=== PATIENT | male | born 1995 | race Two or more races ===

== ENCOUNTER 2018-09-24 20:30 | Emergency (ER) | payer MEDICARE, OTHER, MEDICAID ==
[~2018-09-24] VITALS: Ht 172.7 cm; Wt 102.5 kg
--- NOTE | 2018-09-24 20:30 | NUR ---
PT GERARD FROM A [facility], REPORTS PT WANTING TO GO HOME, RESTLESS. PT CONTINUES TO AMBULATE WITHOUT ASSIST, PT ON MONITOR, VSS, NAD NOTED, PENDING MD PORRAS
--- NOTE | 2018-09-24 21:05 | NUR ---
CALLED HOUSE SUP FOR SITTER, PT KEEPS WALKING OUT OF ROOM. PT WILL BE SEEN BY SW IN THE AM.
--- NOTE | 2018-09-24 21:50 | NUR ---
SITTER AT BEDSIDE, PT SLEEPING
[2018-09-24 21:58] LABS: BASOPHILS # (AUTO) 0.1 /CMM (0.0-0.2); EOSINOPHILS % (AUTO) 6.7 % (0.0-6.0); HEMATOCRIT 44 % (39-51); HEMOGLOBIN 14.6 g/dL (13.5-17.5); LYMPHOCYTES # (AUTO) 2.9 /CMM (0.8-4.8); LYMPHOCYTES % (AUTO) 39.8 % (20.0-44.0); MEAN CORPUSCULAR HGB CONC 33 g/dl (31.0-36.0); MEAN CORPUSCULAR VOLUME 89 fL (80-96); MONOCYTES # (AUTO) 0.6 /CMM (0.1-1.30); MONOCYTES % (AUTO) 8.7 % (2.0-12.0); NEUTROPHILS # (AUTO) 3.2 /CMM (1.8-8.9); NEUTROPHILS % (AUTO) 43.8 % (43.0-81.0); PLATELET COUNT (AUTO) 217 /CMM (150-450); WHITE BLOOD COUNT (AUTO) 7.2 K/uL (4.3-11.0)
[2018-09-24 22:11] LABS: ACETAMINOPHEN 0 ug/ml (10-30); ALANINE AMINOTRANSFERASE 86 U/L (12-78); ALCOHOL, BLOOD < 3 mg/dL (0-0); ALKALINE PHOSPHATASE 102 U/L (46-116); ASPARTATE AMINOTRANSFERASE 25 U/L (15-37); BILIRUBIN,DIRECT 0.1 mg/dL (0.0-0.2); BILIRUBIN,TOTAL 0.8 mg/dL (0.2-1.0); CALCIUM, SERUM 9.3 mg/dL (8.5-10.1); CARBON DIOXIDE 26 mmol/L (21-32); CHLORIDE 106 mmol/L (98-107); CREATININE 0.9 mg/dL (0.6-1.3); GLUCOSE 90 mg/dL (74-106); SALICYLATE 0.2 mg/dL (2.8-20.0); SODIUM SERUM 143 mmol/L (136-145); TOTAL PROTEIN, SERUM 7.6 g/dL (6.4-8.2); UREA NITROGEN, BLOOD 14 mg/dL (7-18)
--- NOTE | 2018-09-25 00:03 | NUR ---
VITAL SIGNS UPDATED. Patient is resting comfortably in bed with eyes closed. Easily aroused. VSS
--- NOTE | 2018-09-25 00:04 | NUR ---
REPORT GIVEN TO ERI COBIAN FOR MONSTER
--- NOTE | 2018-09-25 07:16 | NUR ---
URINE COLLECTED AND SENT TO LAB
[2018-09-25 08:00] LABS: APPEARANCE,URINE Clear (CLEAR); BILIRUBIN,URINE Negative (NEGATIVE); BLOOD, URINE Negative Ery/uL (NEGATIVE); COLOR,URINE Yellow (YELLOW); KETONES,URINE Negative (NEGATIVE); LEUKOCYTE ESTERASE ,URINE Negative (NEGATIVE); NITRITE, URINE Negative (NEGATIVE); PROTEIN,URINE Negative (NEGATIVE); UGLUCOSE Negative (NEGATIVE); UROBILINOGEN,URINE 0.2 EU/dL (0.2)
[2018-09-25 10:38] VITALS: BP 125/66
--- NOTE | 2018-09-25 10:39 | NUR ---
Patient discharged to home in stable condition. Written and verbal after care instructions given. Patient caregiver verbalizes understanding of instruction.
== END 2018-09-25 10:39 | disposition home or self-care (01) ==
LOC: ER 20:32
DX: G31.84 Mild cognitive impairment of uncertain or unknown etiology (principal); R45.6 Violent behavior; F31.9 Bipolar disorder, unspecified; F20.9 Schizophrenia, unspecified; F90.9 Attention-deficit hyperactivity disorder, unspecified type; F81.9 Developmental disorder of scholastic skills, unspecified; I10 Essential (primary) hypertension; Z88.8 Allergy status to other drugs, medicaments and biological substances
CPT/HCPCS: 36415; 80048; 80076; 80305; 80307; 81001; 85025; 99284; G0480; 81000-TC

== ENCOUNTER 2018-10-06 15:41 | Inpatient (IN) | payer MEDICARE, OTHER, MEDICAID ==
[~2018-10-06] VITALS: Ht 175.3 cm; Wt 69.9 kg
[2018-10-06] MEDS ORDERED: LORA0.5T PO (15:53)
[2018-10-06] MEDS ORDERED: DIVA500T4 PO (15:53)
[2018-10-06] MEDS ORDERED: QUET50TA PO (15:53)
[2018-10-06] MEDS ORDERED: MAG30ORA PO (15:53)
[2018-10-06] MEDS ORDERED: QUET100T PO (15:53)
[2018-10-06] MEDS ORDERED: OLANZAPINE 10 MG VIAL IM ONE ×2 (15:59→16:00)
--- NOTE | 2018-10-06 16:00 | NUR ---
PT [facility], PT ON BED 12, PT ON MONITOR, VSS, NAD NOTED, PENDING MD PORRAS
[2018-10-06 16:18] LABS: BASOPHILS % (AUTO) 0.5 % (0.0-2.0); EOSINOPHILS % (AUTO) 9.5 % (0.0-6.0); HEMATOCRIT 45 % (39-51); HEMOGLOBIN 15.3 g/dL (13.5-17.5); LYMPHOCYTES # (AUTO) 2.7 /CMM (0.8-4.8); LYMPHOCYTES % (AUTO) 34.8 % (20.0-44.0); MEAN CORPUSCULAR HGB CONC 34 g/dl (31.0-36.0); MEAN CORPUSCULAR VOLUME 90 fL (80-96); MONOCYTES # (AUTO) 0.6 /CMM (0.1-1.30); MONOCYTES % (AUTO) 8.3 % (2.0-12.0); NEUTROPHILS # (AUTO) 3.7 /CMM (1.8-8.9); NEUTROPHILS % (AUTO) 46.9 % (43.0-81.0); PLATELET COUNT (AUTO) 205 /CMM (150-450); RED BLOOD CELL COUNT(AUTO) 5.03 MIL/uL (4.5-6.0); WHITE BLOOD COUNT (AUTO) 7.8 K/uL (4.3-11.0)
[2018-10-06 16:23] LABS: CALCIUM, SERUM 9.6 mg/dL (8.5-10.1); CARBON DIOXIDE 27 mmol/L (21-32); CHLORIDE 103 mmol/L (98-107); CREATININE 0.8 mg/dL (0.6-1.3); GLUCOSE 114 mg/dL (74-106); POTASSIUM 4.2 mmol/L (3.5-5.1); SODIUM SERUM 141 mmol/L (136-145); UREA NITROGEN, BLOOD 9 mg/dL (7-18)
[2018-10-06 16:28] LABS: ALANINE AMINOTRANSFERASE 68 U/L (12-78); ALKALINE PHOSPHATASE 104 U/L (46-116); ASPARTATE AMINOTRANSFERASE 24 U/L (15-37); BILIRUBIN,DIRECT 0.1 mg/dL (0.0-0.2); BILIRUBIN,TOTAL 0.8 mg/dL (0.2-1.0); TOTAL PROTEIN, SERUM 7.9 g/dL (6.4-8.2)
[2018-10-06 16:29] LABS: ACETAMINOPHEN 0 ug/ml (10-30); ALCOHOL, BLOOD < 3 mg/dL (0-0); SALICYLATE 0.8 mg/dL (2.8-20.0)
[2018-10-06 17:00] LABS: APPEARANCE,URINE Clear (CLEAR); BILIRUBIN,URINE Negative (NEGATIVE); BLOOD, URINE Negative Ery/uL (NEGATIVE); COLOR,URINE Yellow (YELLOW); KETONES,URINE Negative (NEGATIVE); LEUKOCYTE ESTERASE ,URINE Negative (NEGATIVE); NITRITE, URINE Negative (NEGATIVE); PROTEIN,URINE Negative (NEGATIVE); UGLUCOSE Negative (NEGATIVE); UROBILINOGEN,URINE 0.2 EU/dL (0.2)
--- NOTE | 2018-10-06 17:14 | NUR ---
CALLED DIRECTOR OF MARKETING (BIENVENIDO)
--- NOTE | 2018-10-06 22:10 | NUR ---
PER BIENVENIDO HUMAN RESOURCES VICE PRESIDENT, PT WAS PUT ON A 5150 HOLD, ALL PPW SENT TO [facility] FOR POSSIBLE PSYCH FACILITY PLACEMENT. AWAITING CALL BACK FOR POSSIBLE PLACEMENT.
--- NOTE | 2018-10-06 22:56 | NUR ---
SITTER AT BEDSIDE. PT CALM AND COOPERATIVE AT THIS TIEM, VITAL SIGNS UPDATED.
--- NOTE | 2018-10-06 23:55 | NUR ---
SPOKE TO RENETTA AT [facility]; STILL WAITING FOR CALL BACK FROM MD REGARDING ADMISSION. WILL UPDATE US WHEN HE GETS A CALL BACK.
--- NOTE | 2018-10-07 01:00 | NUR ---
pt asleep, sitter at bed side, vs monitored.
--- NOTE | 2018-10-07 03:00 | NUR ---
pt asleep clean and dry, vs stable, will cont to monitor.
--- NOTE | 2018-10-07 06:48 | NUR ---
pt begining to wake up, still not able to provide detailed information, will cont' to monitor.
--- NOTE | 2018-10-07 07:09 | NUR ---
PT HAS SITTER AT BEDSIDE ON MONITOR PT DELAYED [facility] F/U STILL WAITNG FOR ACCEPTING MD TO TRANSFER HOSTPITAL HAS A BED
--- NOTE | 2018-10-07 07:45 | NUR ---
called [facility] intake [phone] spoke with Kolton: have bed waiting to get a doctor to accept. said give them an hour.
--- NOTE | 2018-10-07 09:23 | NUR ---
called [facility] [phone] spoke with Kolton again: he said that they do not have an accepting md. since pt has had a trumatic brain injury? therefore they are unable to accept at this time.
--- NOTE | 2018-10-07 09:35 | NUR ---
CALLED BIENVENIDO FROM CRISIS TEAM AND NOTIFY HER THAT [facility] IS UNABLE TO ACCEPT PT. CALLED CASE MANAGEMENT [phone] AND SPOKE WITH KEVAN WHO STATES PT IF ADMITTED TO [facility] CAN LOCATE [facility] BIENVENIDO AWARE AND IS TEXTING MD MELGAR
--- NOTE | 2018-10-07 10:01 | NUR ---
PT REFUSES TO HAVE VITAL SIGNS TAKEN KEEPS STATING NO, NO, NO. PT SKIN WARM PINK AND MOIST ABLE TO MOVE ALL EXTREMITIES WILL CONTINUE TO MONITOR.
--- NOTE | 2018-10-07 10:56 | NUR ---
PT ATE CUSTARD AND 240 ML JUICE WITH ASSIST GIVEN ARM BLANKET STILL REFUSES TO HAVE VITAL SIGNS TAKEN.
--- NOTE | 2018-10-07 12:59 | NUR ---
PT GIVEN LUNCH TRAY BUT STILL REMAINS UNWILLING TO HAVE VITAL SIGNS TAKEN. SPOKE WITH LEWIS TAM AT COURT PROVIDED CONSERVATOR OUT OF [facility]. PT WAS NOTED TO BE AMBULATORY AND SPEEECH IMPARIED ACCORDING TO CONSERVATORY. PT HAS BEEN IN SEVERAL FACILITIES AND DISCHARGED LAST WAS [facility]. PT PENDING ADMISSION.
[2018-10-07] MEDS ORDERED: OLANZAPINE 10 MG VIAL IM ONE ×2 (14:00→14:55)
[2018-10-07] MEDS ORDERED: LORAZEPAM INJ 2 MG/ML VIAL IM ONE (14:00)
--- NOTE | 2018-10-07 14:25 | NUR ---
PT HAD BOWEL MOVEMENT WITH URINE ALL OVER BED PT BATHED LINEN CHANGED PLACED IN NEW GOWN AND COVERED WITH WARM BLANKET
--- NOTE | 2018-10-07 14:38 | NUR ---
325-2 MEDR FAILURE TO THRIVE SHAYNA DNP
[2018-10-07] MEDS ORDERED: LORAZEPAM INJ 2 MG/ML VIAL ONE (14:56)
--- NOTE | 2018-10-07 16:00 | NUR ---
PT CALM AFTER MEDICATION VITAL SIGNS TAKEN
--- NOTE | 2018-10-07 16:35 | NUR ---
Pt remains in ER for almost 24H discussed Plan of care with ER Team: Spoke to PET brigadier Hina. She states Patient "Does NOT meet criteria to be on psch Hold discussed case with MD Saavedra." ED Provider Dr. Kraus "No medical Reason to Admit" Called Facility where pt resides ([facility] [phone]) Was told by Esther "I will have our technical operations manager you back" No case management specialist on site left message with Mary Jo to get in touch with transformation lead CM Spoke to [facility] Remote Sensing Program Manager regarding patient situation. ER Director Miguel updated. RN Ross Primary updated
--- NOTE | 2018-10-07 17:28 | NUR ---
PT GIVEN DINNER TRAY ASISSTED WITH FEEDING ATE 90%
--- NOTE | 2018-10-07 18:26 | NUR ---
Dental Office Receptionist from [facility] [phone] called Patient on conservatorship under [facility] [phone]
--- NOTE | 2018-10-07 19:12 | NUR ---
LEWIS PALACIO (PT'S CONSERVATOR) CALLED FOR ANY UPDATES, PT STILL DOES NOT HAVE ANY PLACEMENT AT THE MOMENT.
--- NOTE | 2018-10-08 01:35 | NUR ---
PT IS AWAKE ON BED NOT IN RESPIRATORY DISTRESS, V/S STABLE WILL CONTINUE TO MONITOR.
--- NOTE | 2018-10-08 03:16 | NUR ---
PT ASLEEP ON BED, EASILY AROUSABLE, WILL CONTINUE TO MONITOR.
--- NOTE | 2018-10-08 08:10 | NUR ---
CALLED DIETARY FOR BREAKFAST TRAY
--- NOTE | 2018-10-08 16:45 | NUR ---
CALLED FOR FOOD TRAY.
--- NOTE | 2018-10-08 19:03 | NUR ---
PT IN BED, RESTING, VSS, NAD NOTED, KEPT COMFORTABLE. VITAL SIGNS UPDATED
[2018-10-08] MEDS ORDERED: OLANZAPINE 10 MG VIAL IM ONE ×2 (21:51→22:00)
--- NOTE | 2018-10-08 21:54 | NUR ---
PT ANXIOUS AND COMBATIVE. ZYPREXA IM GIVEN [id number],.
--- NOTE | 2018-10-08 23:08 | NUR ---
NURSING ANNEL INFORMED ABOUT PATIENT SITUATION. ER MD AWARE. ANNEL SPOKE TO ER MD. AWAITING FURTHER INFORMATION.
--- NOTE | 2018-10-09 00:04 | NUR ---
PT IN BED, RESTING COMFORTABLY. PROVIDED WITH FOOD AND SNACKS. VSS. WILL CONTINUE TO MONITOR.
--- NOTE | 2018-10-09 02:02 | NUR ---
NO UPDATES REGARDING PT PLACEMENT. WILL CONTINUE TO MONITOR. Patient is resting comfortably in bed with eyes closed. Easily aroused. VSS
--- NOTE | 2018-10-09 06:09 | NUR ---
PT VERY COMBATIVE AND ANXIOUS. REFUSING CARE. REFUSING VITAL SIGN AND CROWN WHEEL ASSEMBLER. HAD AN EPISODE OF BM. THREE NURSES ASSISTED IN CLEANING THE BATIENT AND PLACING THE PT ON A DIAPER HOWEVER PT REMOVED THE DIAPER AND THREW IT AT THE NURSE. WILL CONT TO MONITOR THE PT CLOSELY FOR SAFETY.
[2018-10-09] MEDS ORDERED: QUETIAPINE FUMARATE 25 MG TABLET PO SCH (09:00)
[2018-10-09] MEDS ORDERED: DIVALPROEX SODIUM 500 MG TABLET.DR PO ONE (09:00)
--- NOTE | 2018-10-09 09:48 | NUR ---
CALLED JEANETTE ITS DOUGLAS
--- NOTE | 2018-10-09 10:25 | NUR ---
[facility] CASE MANAGEMENT AT BEDSIDE TO SPEAK WITH CONGREGATE FACILITY STAFF
[2018-10-09] MEDS ORDERED: Z GUARD REMEDY 2 OZ OINT TP PRN (10:30)
[2018-10-09] MEDS ORDERED: MAGNESIUM HYDROXIDE 30 ML UDC PO PRN (10:30)
[2018-10-09] MEDS ORDERED: ACETAMINOPHEN 325 MG TABLET PO PRN (10:30)
[2018-10-09] MEDS ORDERED: MAG HYDROX/AL HYDROX/SIMETH 30 ML UDC PO PRN (10:30)
[2018-10-09] MEDS ORDERED: ONDANSETRON HCL/PF 4 MG/2 ML VIAL IVP PRN (10:30)
--- NOTE | 2018-10-09 10:42 | NUR ---
report given to jessica crain for suzette; pt will be transported to 3rd floor via [facility] with emt
--- NOTE | 2018-10-09 10:45 | NUR ---
MS RN NOTES PATIENT ARRIVED AT UNIT VIA GURNEY. REPORT RECEIVED FROM JHONNY COBIAN. PATIENT AWAKE, ALERT TO SELF. VERBALLY RESPONSIVE AND RESPONDS TO VERBAL AND TACTILE STIMULI. NO ACUTE DISTRESS. PATIENT DENIES ANY PAIN OR DISCOMFORT. PATIENT CONFUSED, ONLY ORIENTED TO SELF. NOTED WITH DISORGANIZED THOUGHTS. NO AGITATION OR AGGRESSIVE BEHAVIOR NOTED AT THIS TIME. PATIENT ADMITTED UNDER MEDICAL SUPERVISION OF DOUGLAS HANSON FISHERIES INSPECTOR, MADE AWARE OF PATIENT ARRIVAL. PATIENT REFUSES TO HAVE IV INSERTION, DOUGLAS HANSON MADE AWARE AND OK.
--- NOTE | 2018-10-09 10:50 | NUR ---
MS RN NOTES PATIENT INTRODUCED AND ORIENTED TO UNIT, STAFF, ROOM, MEAL TIMES, PLAN OF CARE. NO CHANGES IN LOC NOTED AT THIS TIME. WILL CONTINUE TO MONITOR. BED LOCKED AND IN LOW POSITION. BILATERAL UPPER SIDE RAILS UP AND LOCKED. SITTER AT BEDSIDE. CALL LIGHT WITHIN EASY REACH.
[2018-10-09] MEDS: QUETIAPINE FUMARATE 25 MG TABLET PO SCH ×2 (11:00→17:00)
[2018-10-09] MEDS: DIVALPROEX SODIUM 250 MG TABLET.DR PO SCH ×2 (11:00→21:21)
[2018-10-09] MEDS ORDERED: LORAZEPAM 0.5 MG TABLET PO PRN (11:00)
[2018-10-09] MEDS ORDERED: LORAZEPAM 1 MG TABLET PO ONE (12:00)
--- NOTE | 2018-10-09 12:06 | NUR ---
pt to altered to perform cxr
--- NOTE | 2018-10-09 15:05 | NUR ---
MS RN NOTES PATIENT NOTED WITH INCREASED AGITATION. YELLING AND SCREAMING, TURNING AROUND BED AND SWING ARM AND KICKING NURSING STAFF. ATTEMPTED TO CALM PATIENT DOWN BUT TO NO AVAIL, PATIENT CONTINUES TO SWING ARM AND KICK AT NURSING STAFF. DOES NOT WANT TO FOLLOW NURSING CARE, REFUSES REPOSITIONING. PLACED CALL TO DOUGLAS HANSON AND MADE AWARE OF PATIENT CONDITION, GAVE OK TO PLACE BILATERAL SOFT WRIST RESTRAINTS. ORDER NOTED AND CARRIED OUT. PATIENT MADE AWARE, PLACED ON BILATERAL SOFT WRIST RESTRAINTS. MAINTAINED SAFETY PRECAUTIONS. WILL CONTINUE TO MONITOR
[2018-10-09 16:00] VITALS: BP 121/80
--- NOTE | 2018-10-09 18:37 | NUR ---
MS RN NOTES PATIENT RESTING INSIDE ROOM. AWAKE, ALERT AND ORIENTED TO SELF. VERBALLY RESPONSIVE WITH GARBLED SPEECH AND RESPONDS TO VERBAL AND TACTILE STIMULI. NO ACUTE DISTRESS AT THIS TIME. NO C/O PAIN OR DISCOMFORT. PATIENT WITH EPISODES OF GETTING EXTREMELY AGIGATED, ATTEMPTING TO KICK AND PUNCH STAFF. PATIENT ALSO WITH EPISODES OF BEING COOPERATIVE WITH NURSING CARE, TURNING AND REPOSITIONING WITH CHANGING. SAFETY PRECAUTIONS IN PLACE. WILL ENDORSE TO INCOMING SHIFT FOR MONSTER. BED LOCKED AND IN LOW POSITION. SIDE RAILS UP AND LOCKED. CALL LIGHT WITHIN EASY REACH
--- NOTE | 2018-10-09 19:10 | NUR ---
MS/RN NOTES RECEIVED PT. LYING IN BED, PT. IS AWAKE, ALERT AND ORIENTED X 1-2 WITH GARBLED SPEECH. BREATHING EVEN AND UNLABORED ON ROOM AIR. NO SOB, RESPIRATORY DISTRESS OR COMPLAINTS OF PAIN NOTED AT THIS TIME. PT. REMAINS WITH NO IV ACCESS, PER DAYSHIFT NURSE AWARE. PT. WITH 1:1 SITTER PRESENT AT BEDSIDE. BED LOCKED AND IN LOWEST POSITION, SIDE RAILS UP X3, BED ALARM ON, CALL LIGHT WITHIN REACH, WILL CONTINUE TO MONITOR.
[2018-10-09 20:00] VITALS: BP 121/74
[2018-10-09] MEDS: QUETIAPINE FUMARATE 100 MG TABLET PO SCH (21:22)
[2018-10-09] MEDS ORDERED: QUETIAPINE FUMARATE 100 MG TABLET PO SCH (22:00)
--- NOTE | 2018-10-10 06:09 | NUR ---
MS/RN NOTES PT. IS LYING IN BED RESTING. BREATHING EVEN AND UNLABORED ON ROOM AIR. NO SOB, RESPIRATORY DISTRESS OR COMPLAINTS OF PAIN NOTED AT THIS TIME AND THROUGHOUT SHIFT. PT. REMAINS WITH NO IV ACCESS, MD AWARE. PT. WITH 1:1 SITTER PRESENT AT BEDSIDE. ALL PT. NEEDS MET. BED LOCKED AND IN LOWEST POSITION, SIDE RAILS UP X3, BED ALARM ON, CALL LIGHT WITHIN REACH, WILL ENDORSE TO DAYSHIFT NURSE FOR CONTINUITY OF CARE.
--- NOTE | 2018-10-10 07:00 | NUR ---
RECEIVED PATIENT WITH SITTER AT BEDSIDE AND NO RESTRAINTS PER NOC NURSE.PATIENT QUIET IN BED. WILL OBSERVE.
[2018-10-10] MEDS: PANTOPRAZOLE 40 MG TABLET.DR PO SCH (07:30)
[2018-10-10 08:00] VITALS: BP 113/77
[2018-10-10 09:02] LABS: BASOPHILS # (AUTO) 0.1 /CMM (0.0-0.2); BASOPHILS % (AUTO) 0.5 % (0.0-2.0); EOSINOPHILS % (AUTO) 4.3 % (0.0-6.0); HEMATOCRIT 45 % (39-51); HEMOGLOBIN 15.3 g/dL (13.5-17.5); LYMPHOCYTES # (AUTO) 2.2 /CMM (0.8-4.8); LYMPHOCYTES % (AUTO) 21.3 % (20.0-44.0); MEAN CORPUSCULAR HGB CONC 34 g/dl (31.0-36.0); MEAN CORPUSCULAR VOLUME 89 fL (80-96); MONOCYTES # (AUTO) 1.4 /CMM (0.1-1.30); MONOCYTES % (AUTO) 13.4 % (2.0-12.0); NEUTROPHILS # (AUTO) 6.2 /CMM (1.8-8.9); NEUTROPHILS % (AUTO) 60.5 % (43.0-81.0); PLATELET COUNT (AUTO) 184 /CMM (150-450); RED BLOOD CELL COUNT(AUTO) 5.04 MIL/uL (4.5-6.0); WHITE BLOOD COUNT (AUTO) 10.2 K/uL (4.3-11.0)
[2018-10-10] MEDS: DIVALPROEX SODIUM 250 MG TABLET.DR PO SCH ×2 (09:10→22:43)
[2018-10-10] MEDS: QUETIAPINE FUMARATE 25 MG TABLET PO SCH ×2 (09:10→17:34)
[2018-10-10 09:14] LABS: CALCIUM, SERUM 8.9 mg/dL (8.5-10.1); MAGNESIUM 1.6 mg/dL (1.8-2.4); PHOSPHORUS 4.6 mg/dL (2.5-4.9); POTASSIUM 3.9 mmol/L (3.5-5.1)
[2018-10-10 09:41] LABS: THYROID STIMULATING HORMONE 1.491 uIU/mL (0.358-3.74)
--- NOTE | 2018-10-10 11:59 | NUR ---
DWAYNE received a call from pt's conservator Ramsey Cochran from [facility] inquiring about pt's discharge plan. DWAYNE informed him that he will have to speak to top case assembler Elly Davies regarding pt's discharge plan and placement. Ramsey also inquired about pt's telephone and charger tester and if pt. has it with him. DWAYNE informed him she will check with pt's RN to check with in pt's belongings and call him back. Addendum: 10/10/18 at 1401 by REAGAN RICE DWAYNE updated him with Elly Davies contact number .
--- NOTE | 2018-10-10 13:14 | NUR ---
MS RN NOTES ASSUMED CARE AT 1310. REPORT RECEIVED FROM MALATHI TAVERAS RN. PATIENT RESTING INSIDE ROOM. SLEEPING, EASILY AROUSABLE THROUGH VERBAL AND TACTILE STIMULI. SLOW TO RESPOND. WITH GARBLED SPEECH. NO ACUTE DISTRESS NOTED. PATIENT DENIES ANY PAIN OR DISCOMFORT. NO IV ACCESS ON PATIENT. MD AWARE AND OK. SITTER AT BEDSIDE. WILL CONTINUE TO MONITOR. BED LOCKED AND IN LOW POSITION. BILATERAL UPPER SIDE RAILS UP AND LOCKED. CALL LIGHT WITHIN EASY REACH
--- NOTE | 2018-10-10 13:22 | NUR ---
PATIENT RESTING IN WITH NO RESTRAITS. NO UNTOWARD BEHAVIOUR NOTED. QUIET IN BED WITH SITTER AT BEDSIDE,
--- NOTE | 2018-10-10 14:01 | NUR ---
SW checked with pt's RN and sitter bedside, pt. does not have his telephone or preschool teacher's assistant with him. DWAYNE contacted conservclive Cochran and left him a voicemail message with the aforementioned information.
[2018-10-10 16:00] VITALS: BP 104/52
[2018-10-10] MEDS ORDERED: MAGNESIUM OXIDE 400 MG TABLET PO ONE (16:30)
--- NOTE | 2018-10-10 18:25 | NUR ---
MS RN NOTES ER STAFF BROUGHT PATIENT BELONGINGS LEFT AT ER. BELONGINGS INCLUDE 1 CELLPHONE, 1 WALLET, 1 [place] ID, 22$ IN DENOMINATIONS OF 20-DOLLAR BILL X 1 AND 2-DOLLAR BILL X 1. PATIENT MADE AWARE AND NODDED. UPDATED PATIENT BELONGING LIST. CHARGE NURSE AWARE. PLACED CALL TO HARNESS INSTALLER AND LEFT MESSAGE. WILL CONTINUE TO MONITOR
--- NOTE | 2018-10-10 19:15 | NUR ---
MS/RN NOTES RECEIVED PT. LYING IN BED, PT. IS AWAKE, ALERT AND ORIENTED X 1-2 WITH GARBLED SPEECH. BREATHING EVEN AND UNLABORED ON ROOM AIR. NO SOB, RESPIRATORY DISTRESS OR COMPLAINTS OF PAIN NOTED AT THIS TIME. PT. REMAINS WITH NO IV ACCESS, MD AWARE. PT. WITH 1:1 SITTER PRESENT AT BEDSIDE. BED LOCKED AND IN LOWEST POSITION, SIDE RAILS UP X3, BED ALARM ON, CALL LIGHT WITHIN REACH, WILL CONTINUE TO MONITOR.
--- NOTE | 2018-10-10 19:23 | NUR ---
MS RN CLOSING NOTES PATIENT IS CALM, AWAKE, AND RESTING IN BED. PATIENT RESPONDS TO VERBAL STIMULI. PATIENT EXPERIENCING NO PAIN. PATIENT BREATHING ON ROOM AIR. NO ACUTE DISTRESS NOTED. BREATHING EVEN AND UNLABORED. PATIENT HAS A 1:1 SITTER, WITH SITTER AT BEDSIDE. PATIENT BED LOCKED AND IN LOW POSITION. ALL NURSING NEEDS MET. PATIENT KEPT DRY, CLEAN AND COMFORTABLE. PATIENT CALL LIGHT WITHIN REACH. ENDORSED CARE TO PM SHIFT.
[2018-10-10] MEDS: QUETIAPINE FUMARATE 100 MG TABLET PO SCH (22:43)
--- NOTE | 2018-10-11 06:29 | NUR ---
MS/RN NOTES PT. IS LYING IN BED RESTING. BREATHING EVEN AND UNLABORED ON ROOM AIR. NO SOB, RESPIRATORY DISTRESS OR COMPLAINTS OF PAIN NOTED AT THIS TIME. PT. REMAINS WITH NO IV ACCESS, MD AWARE. PT. WITH 1:1 SITTER PRESENT AT BEDSIDE. ALL PT. NEEDS MET. BED LOCKED AND IN LOWEST POSITION, SIDE RAILS UP X3, BED ALARM ON, CALL LIGHT WITHIN REACH, WILL ENDORSE TO DAYSHIFT NURSE FOR CONTINUITY OF CARE.
[2018-10-11 07:10] LABS: POTASSIUM 3.5 mmol/L (3.5-5.1)
[2018-10-11 07:11] LABS: CALCIUM, SERUM 8.3 mg/dL (8.5-10.1); CREATININE 0.8 mg/dL (0.6-1.3); MAGNESIUM 2.1 mg/dL (1.8-2.4)
[2018-10-11] MEDS: PANTOPRAZOLE 40 MG TABLET.DR PO SCH (07:30)
[2018-10-11] MEDS: DIVALPROEX SODIUM 250 MG TABLET.DR PO SCH (08:34)
[2018-10-11] MEDS: QUETIAPINE FUMARATE 25 MG TABLET PO SCH (08:34)
--- NOTE | 2018-10-11 11:00 | NUR ---
A NEW PRESCRIPTION PROVIDED BY DOCTOR XIE
--- NOTE | 2018-10-11 17:20 | NUR ---
PATIENT CLEARED FOR DISCHARGE TO ASSISTED LIVING "[facility]" BY . PATIENT A/OX1 CONFUSED, R SIDED HEMIPLEGIA , LEARNING DISABILITY. UNABLE TO PROVED DISCHARGE INSTRUCTIONS AND TEACHING DUE TO PATIENT LEARNING DISABILITY. PATIENT HAS NO IV ASSESS. NO SKIN ISSUES. ON RIGHT ELBOW SMALL OLD AND DRY SCAB. PATIENT REFUSED TO TAKE A PICTURE( BECAME AGGRESSIVE). REPORT GIVEN TO AMBULANCE STAFF, A NEW PRESCRIPTION AND D/C PAPERS GIVEN TO EMT. ALL BELONGINGS WITH THE PATIENT (WALLET WITH 22 $ AND CELL PHONE). PATIENT SAFELY TRANSFERRED VIA GURNEY.
== END 2018-10-11 17:30 | DRG 153 ==
LOC: ER 15:44 → MED 10-07 14:42 → UNDOADMIN 10-07 14:42 → MED 10-09 10:22
PROVIDERS: ADMIT Registered Nurse; ATTEND Nurse Practitioner Acute Care
DX: J06.9 Acute upper respiratory infection, unspecified (principal); G81.91 Hemiplegia, unspecified affecting right dominant side; I10 Essential (primary) hypertension; Z59.0 Homelessness; F31.9 Bipolar disorder, unspecified; F20.9 Schizophrenia, unspecified; F90.9 Attention-deficit hyperactivity disorder, unspecified type; F81.9 Developmental disorder of scholastic skills, unspecified; E66.01 Morbid (severe) obesity due to excess calories; Z68.22 Body mass index [BMI] 22.0-22.9, adult; E83.42 Hypomagnesemia; Z87.820 Personal history of traumatic brain injury; F29 Unspecified psychosis not due to a substance or known physiological condition
CPT/HCPCS: 36415; 71045-TC; 80048-TC; 80061-TC; 80076-TC; 80164-TC; 80305; 81000-TC; 83735-TC; 84100-TC; 84443-TC; 85025-TC; 87081-TC; G0378; G0480; J2060; J3490